=== PATIENT | female | born 1940 | race Caucasian/White ===

== ENCOUNTER 2017-09-13 06:20 | Day surgery (SDC) ==
[2016-08-13 18:31] VITALS: BMI 23.5
[2017-09-13] MEDS ORDERED: VOLTAREN 0.1% OPTH SOL OP PRN (06:46)
[2017-09-13] MEDS ORDERED: KETOROLAC 0.5% OPTH SOL OP PRN (06:46)
[2017-09-13] MEDS ORDERED: LIDOCAINE 1% 20 ML MDV ID STA (06:46)
[2017-09-13] MEDS: CYCLOGYL 2% OPTH OP PRN ×3 (07:10→07:20)
[2017-09-13] MEDS: TETRACAINE 0.5% UNIT-DOSE OP PRN ×3 (07:10→07:40)
[2017-09-13] MEDS: AK-DILATE 10% OPTH SOL OP PRN ×3 (07:10→07:20)
[2017-09-13] MEDS: OCUFEN 0.03% OPTH SOL OP PRN ×3 (07:10→07:40)
[2017-09-13] MEDS ORDERED: VERSED ONE (07:30)
[2017-09-13] MEDS ORDERED: DIAMOX PO ONE ×2 (08:45)
--- NOTE | 2017-09-13 12:56 | OP ---
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 POSTOPERATIVE DIAGNOSIS: SAME. OPERATION PHACOEMULSIFICATION ASPIRATION OF CATARACT LEFT EYE. PLACEMENT OF POSTERIOR CHAMBER LENS. PHACO TIME 0:42.5 SECONDS AT 8% POWER. LENS MODEL BHUMIKA [id number]. DIOPTER +22.5D. TECHNIQUE: CLEAR CORNEA. ANESTHESIA: TOPICAL ANESTHESIA W/ANESTHESIA MONITORING. OPERATIVE REPORT: Topical anesthesia consisting of Tetracaine was applied to the cornea and Xylocaine Methyl Paraben free of MFP was injected intracamerally into the anterior chamber. The patient was then brought into the operating room , prepped and draped in the usual ophthalmic manner. A lid speculum was placed and the operating microscope was used. A paracentesis was made at the 3 o' clock position. A clear corneal incision was made just out to the limbus. The anterior chamber was entered just inside the clear cornea. Viscoelastic was injected into the anterior chamber. A capsulotomy was performed with a bent # 27 gauge needle. Phacoemulsification was then performed in the posterior chamber. After completion of the phacoemulsification, residual cortical material was aspirated with the irrigation-aspiration system. The posterior capsule was polished. Viscoelastic was injected into the anterior and posterior chambers to inflate the capsular bag. Lens were placed via an Unfolder system and stabilized in the bag. Viscoelastic was removed from the anterior chamber. The wound was checked for any leakage. The four sponges were removed from the fornix. Topical antibiotic steroid and nonsteroidal drops were also applied to the cornea. A Jacobsen shield was applied. The patient left the operating room in good condition without any complications. INTRAOPERATIVE MEDICATIONS: Xylocaine Methyl Paraben Free MPF MTDD
[2017-09-13] MEDS ORDERED: DIAMOX PO STA (13:09)
[2017-09-13 13:53] VITALS: BP 138/67; TEMP 98.5
== END 2017-09-13 08:30 | disposition home or self-care (01) ==
LOC: SURG 06:20
PROVIDERS: ATTEND Ophthalmology
DX: H25.12 Age-related nuclear cataract, left eye (principal); H25.012 Cortical age-related cataract, left eye

== ENCOUNTER 2018-01-13 08:25 | Outpatient (CLI) ==
[2018-01-13 09:41] VITALS: BMI 25.7
== END 2018-01-13 08:26 | disposition home or self-care (01) ==
LOC: DIETCN 08:25
PROVIDERS: ATTEND Family Medicine
DX: R73.01 Impaired fasting glucose (principal)

== ENCOUNTER 2018-02-17 21:08 | Emergency (ER) | payer OTHER ==
[2018-02-17 21:25] VITALS: TEMP 98.4; BMI 25.0
--- NOTE | 2018-02-17 22:37 | ED.PDOC ---
General ED Provider: Dr. JACQUELINE ENAMORADO-ER Chief Complaint: Non-specific Complaint Stated Complaint: shes been confused for severall days --about 3 days Time Seen by Physician: 21:15 Mode of Arrival: Walk-In Information Source: Patient, Family Exam Limitations: No limitations Primary Care Provider: COTY LARSEN Nursing and Triage Documentation Reviewed and Agree: Yes Reviewed sepsis parameters & appropriate labs ordered?: Yes System Inflammatory Response Syndrome: Not Applicable Sepsis Protocol: For patient's 13 years and over: Temp is 96.8 and below OR 101 and greater Pulse >90 BPM Resp >20/minute Acutely Altered Mental Status Are patient's symptoms suggestive of a new infection, such as: -Pneumonia -Skin, Soft Tissue -Endocarditis -UTI -Bone, Joint Infection -Implantable Device -Acute Abdominal Infection -Wound Infection -Meningitis -Blood Stream Catheter Infection -Unknown Neurological Complaint Exam - Altered Mental Status Complaint/Exam Current Mental Status: Confusion Onset: Sudden Duration: 3 days Symptoms Are: Still present Episodes Lasting: Days Initial Severity: Mild Current Severity: Moderate Eye Deviation Present: No Character: Reports: Confusion. Denies: Agitation, Responsiveness, Lethargy Alleviating: Reports: None Associated Signs and Symptoms: Denies: Dizziness, Weakness, Headache, Fever, Illness, Nuchal rigidity, Seizure, Nausea, Vomiting, Recently depressed, Trauma Carotid Bruit Present: No Nystagmus Present: No Gag Reflex Present: Yes Meningeal Signs Positive: No Focal Weakness: Present: None Focal Sensory Loss: Present: None Gait: Normal [id number]: Normal Findings Babinski Sign: Positive Right Signs of Injury: Present: Normal findings Thrombolytics Considered: No Differential Diagnoses: Intracranial Bleed, Metabolic Disorder, CVA Review of Systems - Review Of Systems Constitutional: Reports: No symptoms Eyes: Reports: No symptoms Ears, Nose, Mouth, Throat: Reports: No symptoms Respiratory: Reports: No symptoms Cardiac: Reports: No symptoms GI: Reports: No symptoms : Reports: No symptoms Musculoskeletal: Reports: No symptoms Skin: Reports: No symptoms Neurological: Reports: Cognitive dysfunction Endocrine: Reports: No symptoms Hematologic/Lymphatic: Reports: No symptoms All Other Systems: Reviewed and Negative Past Medical History - Past Medical History Previously Healthy: No Endocrine: Reports: None Cardiovascular: Reports: Hypertension Respiratory: Reports: Other (pulmonary nodule) Hematological: Reports: None Gastrointestinal: Reports: None Genitourinary: Reports: None Neuro/Psych: Reports: None Musculoskeletal: Reports: Unknown Cancer: Reports: None Last Menstrual Period: menopausal - Surgical History General Surgical History: Reports: None - Family History Family History: Reports: None - Social History Smoking Status: Former smoker Hx Substance Use: No Alcohol Screening: None Lives: With family - Immunizations Tetanus Shot up to Date: Yes Physical Exam - Physical Exam Appearance: Well-appearing Eyes: LOREN, EOMI, Conjunctiva clear ENT: Ears normal, Nose normal, Oropharynx normal Neck: Supple Respiratory: Airway patent, Breath sounds clear, Breath sounds equal, Respirations nonlabored Cardiovascular: RRR, Pulses normal, No rub, No murmur GI/: Soft, Nontender, No masses, Bowel sounds normal, No Organomegaly Musculoskeletal: Normal strength, ROM intact, No edema, No calf tenderness Skin: Warm, Dry, Normal color Neurological: Disoriented Psychiatric: Affect appropriate, Mood appropriate Interpretation - Radiology Interpretation Radiology Interpretation By: Radiologist Radiology Results: Positive Exam Interpreted: CT Scan - EKG Interpretation Time of EKG #1: 23:01 Rate: Normal Rhythm: Sinus Ectopy: None [place]: NL ST Segment: Normal Physician Notification - Case Discussed Physician Notified: dr larsen Time of Notification: 23:01 Critical Care Note - Critical Care Note Total Time (mins): 15 Course - Course Hematology/Chemistry: 02/17/18 21:48 02/17/18 21:48 Orders, Labs, Meds: Lab Review 02/17/18 02/17/18 02/17/18 21:31 21:48 21:48 WBC 9.32 RBC 3.98 L Hgb 12.2 Hct 36.3 L MCV 91.2 MCH 30.7 MCHC 33.6 RDW Coeff of Lyly 13.2 Plt Count 281 Immature Gran % (Auto) 0.2 Neut % (Auto) 54.2 Lymph % (Auto) 36.5 Towner % (Auto) 7.1 Eos % (Auto) 1.2 Baso % (Auto) 0.8 Immature Gran # (Auto) 0.0 Neut # (Auto) 5.1 Lymph # (Auto) 3.4 Towner # (Auto) 0.7 Eos # (Auto) 0.1 Baso # (Auto) 0.1 ESR 14 Sodium 140 Potassium 4.1 Chloride 108 H Carbon Dioxide 23 Anion Gap 13.1 BUN 12 Creatinine 1.00 Estimated GFR (MDRD) 54.00 BUN/Creatinine Ratio 12.00 Glucose 111 Calcium 9.3 Total Bilirubin 0.3 AST 18 ALT 10 L Alkaline Phosphatase 89 Ammonia Total Protein 6.9 Albumin 3.7 Globulin 3.2 Albumin/Globulin Ratio 1.16 Vitamin B12 Urine Color Yellow Urine Clarity Clear Urine pH 6.5 Ur Specific [place] 1.015 Urine Protein Negative Urine Glucose (UA) Negative Urine Ketones Negative Urine Blood Negative Urine Nitrite Negative Urine Bilirubin Negative Urine Urobilinogen 1.0 Ur Leukocyte Esterase 1+ Urine Microscopic RBC 0-2 Urine Microscopic WBC 2-5 Ur Squamous Epith Cells 2-5 Ur Transition Epith Cell 2-5 Urine Bacteria Trace 02/17/18 02/17/18 21:48 21:48 WBC RBC Hgb Hct MCV MCH MCHC RDW Coeff of Lyly Plt Count Immature Gran % (Auto) Neut % (Auto) Lymph % (Auto) Towner % (Auto) Eos % (Auto) Baso % (Auto) Immature Gran # (Auto) Neut # (Auto) Lymph # (Auto) Towner # (Auto) Eos # (Auto) Baso # (Auto) ESR Sodium Potassium Chloride Carbon Dioxide Anion Gap BUN Creatinine Estimated GFR (MDRD) BUN/Creatinine Ratio Glucose Calcium Total Bilirubin AST ALT Alkaline Phosphatase Ammonia 30 Total Protein Albumin Globulin Albumin/Globulin Ratio Vitamin B12 202 L Urine Color Urine Clarity Urine pH Ur Specific [place] Urine Protein Urine Glucose (UA) Urine Ketones Urine Blood Urine Nitrite Urine Bilirubin Urine Urobilinogen Ur Leukocyte Esterase Urine Microscopic RBC Urine Microscopic WBC Ur Squamous Epith Cells Ur Transition Epith Cell Urine Bacteria Orders Category Date Time Status EKG-(ED ONLY) Stat CARDIO 02/17/18 21:29 Completed Transaction Advisory Services Manager [ED BIOFUELS PLANT MANAGER APPLIED] .ONCE EMERGENCY 02/17/18 21:30 Active AMMONIA Stat LAB 02/17/18 21:48 Completed BLOOD CULTURE (ED ONLY) Stat LAB 02/17/18 21:48 Received CBC W/ AUTO DIFF Stat LAB 02/17/18 21:48 Completed COMPREHENSIVE METABOLIC PANEL Stat LAB 02/17/18 21:48 Completed ESR Stat LAB 02/17/18 21:48 Completed RPR [RAPID PLASMA REAGIN] Stat LAB 02/17/18 21:48 Received URINALYSIS C & S IF INDICATED Stat LAB 02/17/18 21:31 Completed VITAMIN B12 Stat LAB 02/17/18 21:[address] HEAD W/O CONTRAST Stat RADS 02/17/18 21:29 Completed Vital Signs: Temp Pulse Resp BP Pulse Ox 02/17/18 22:49 86 22 155/68 H 96 02/17/18 22:37 83 20 162/74 H 95 02/17/18 21:12 98.4 F 87 20 170/68 H 96 Departure - Departure Time of Disposition: 23:01 Disposition: TSF SHORT-TRM HOSP Discharge Problem: Vitamin B12 deficiency CVA (cerebral vascular accident) Qualifiers: CVA mechanism: unspecified Qualified Code(s): I63.9 - Cerebral infarction, unspecified Condition: Fair Pt referred to PMD for follow-up: Yes IPMP verified?: No Allergies/Adverse Reactions: Allergies naproxen sodium [From Aleve] Allergy (Intermediate, Verified 02/17/18 21:25) Anaphylaxis Home Medications: Ambulatory Orders Calcium Carbonate/Vitamin D3 [Calcium 600 + Vit D 400 Softgl] 1 tab PO DAILY Amlodipine Besylate [Norvasc] 5 mg PO DAILY 08/23/15 Lisinopril [Zestril] 10 mg PO DAILY 08/23/15 Transfer Form Completed: Yes Disposition Discussed With: Patient, Family
[2018-02-17 22:50] VITALS: BP 155/68
--- NOTE | 2018-02-17 22:55 | CT ---
EXAM: CT head without contrast. HISTORY: Confusion. PROCEDURE: Contiguous axial CT images of the head without contrast with coronal and sagittal reforma ts. FINDINGS: Comparison made with CT head of 08/23/2015. There is a focal area of decreased attenuation in the left basal ganglia measuring 3.4 x 1.9 cm suspicious for a subacute infarct. There is parti al effacement of the left frontal horn. The ventricles are within normal limits in size. The basal cisterns are normal in size and configuration. No evidence of mass or midline shift. No intracrania l hemorrhage. No extra-axial fluid collection. There are chronic small vessel ischemic changes in t he white matter. There is diffuse cerebral atrophy. The paranasal sinuses and mastoid air cells are w ell-aerated and normal in appearance. Impression: Focal area of decreased attenuation in the left basal ganglia measuring 3.4 x 1.9 cm, latosha picious for a subacute infarct. Consider MRI for further evaluation if clinically indicated. Chronic small vessel ischemic changes. Diffuse cerebral atrophy.
== END 2018-02-18 01:05 | disposition short-term general hospital (02) ==
LOC: ED 21:08
DX: I63.9 Cerebral infarction, unspecified (principal); E53.8 Deficiency of other specified B group vitamins; I10 Essential (primary) hypertension; R41.3 Other amnesia; Z79.899 Other long term (current) drug therapy
CPT/HCPCS: 36415; 80053; 81001; 82140; 82607; 85025; 85651; 86592; 87040; 93005; 93010; 99285

== ENCOUNTER 2018-03-18 09:00 | Outpatient (RCR) ==
--- NOTE | 2018-03-16 11:23 | RS.SP/LANG ---
Subjective Number of treatment sessions: 1 Date of Evaluation: 03/16/18 Date of Onset/Injury/Change in Status: 02/15/18 Treatment Diagnosis: CVA Current Level of Function: This 77 year old female lives in her home with assistance from her . She is independent with her daily routine, but requires assistance with medication and sales agent financial report service. Her challenges include expressive language, including naming, word finding, and writing skills. Her communication skills are functional independently, but when she becomes fatigued, her expressive langauge becomes more difficult to communicate her wants/needs. Current Subjective/complaints:: The patient reported her primary concerns are talking. When asked about her difficulty, she stated she cannot say the word she is thinking, or she replaces the correct word with a different word. However she went on to state, she does not hear her mistakes in her expressive language. When the RIVET HAMMER MACHINE OPERATOR asked her about her speech difficulty, he stated she requries time to think of the word she wants to use. He stated, " I can usually figure out the word she is wanting to use or say." Both the patient and her feel her speech difficulty inteferes with her communication skills, especially as she becomes tired. Medical History Comments:: CVA, HTN, hx of tobacco use. Hx Home Medications: Refer to list for current medications. Patient's Goals: To be evaluated and determine strengths and challenges with expressive language skills. Both the patient and want to be trained in strategies to use in the home environment to improve expressive langauge skills. Information History:: The was the primary case history provider. He stated that she was at home in the house when the CVA occured. He was outside and she stated "I don't feel right, i'm not sick, I just don't feel right." He took her to the hospital where she was taken for a CT scan. The results indicated a left side CVA. She was admitted to the hospital for two days to be monitored and administered stroke protocols. She was discharged to her home. She went to see her PCP and at the time of her visit, she reported speech difficulty. The PCP referred her for outpatient speech therapy. She had been participating her daily routines and social events with mild-moderate difficulty with her expressive language skills. Informal Assessment:: The RIVET HAMMER MACHINE OPERATOR interviewed the patient prior to the formal assessment. During the interview she relied on her frequently to answer questions. She responded when the question was directed to her and the RIVET HAMMER MACHINE OPERATOR requested she reply. However, she was noted with mild-moderate semantic paraphasias and mild anomia. She had approximately 1-5 seconds response latency periods. She was noted to use filler words and circumlocution occasionally to compensate for her expressive deficts. Formal/Objective Assessment:: SLUMS Problem solving task with moderate difficulty independently and mild difficulty when given verbal and visual cues. Memory recall with 60% accuracy independently increasing to 80% with verbal cues. Divergent naming with mild difficulty. Pt did demonstrate categorical thinking with naming task, but became fatigued in less than one minute and stopped naming animals before the time limit was complete. Visiospatial skills were noted with mild difficulty. The [place] Naming Test was completed from the [place] Diagnostic Aphasia Assessment. She named 50% of objects spontaneously. Named 25% with a response latency. Named 25% given a phonemic cue. Named 15% given a stimulus with a category. Pt had perseveration one time. Pt had phonemic paraphasia's three times. Analysis:: When given a phonemic cue, pt can recall word approximately 50% of the trials. When given a semantic cue, pt can recall word approximately 25-50% of the opportunities. When pt is under timed pressure, naming skills decrease. When pt is recalling words in connected speech, circumlocution behaviors are observed 50%. Pt verbalizes awareness of expressive language deficits. When speech errors occur, she requires verbal cues to identify speech error, and phonemic or semantic cues to correct errors. Pt can correct words independently 50% of opportunities. Summary and Recommendations:: The RIVET HAMMER MACHINE OPERATOR recommends the pt to come for one treatment session. The RIVET HAMMER MACHINE OPERATOR will provided trainining, education, and resource materials for the patient and . The resources will be used to complete a daily home program to practice with naming skills. The RIVET HAMMER MACHINE OPERATOR will provide more treatment sessions if the patient requests for more formal training. However the RIVET HAMMER MACHINE OPERATOR feels the patient and can complete activities in the home environment once the resources are provided. Functional Reporting G Codes: Expressive language Current CK Goal CJ Severity Impairment Rationale: Naming skills are affected in connected speech and in isolated words. Short Term Goals Problem: expressive language Goal #1: Demonstrates comp. strategies with naming skills on 05/13 Problem: expressive language Goal #2: Verbalize awareness of speech errors in connected speech Weight Reduction Specialist Goals Problem: Expressive language Goal #1: Demonstrate strategies independently for home program Plan Duration of Treatment: One Time Treatment Frequency of Treatment: 1x Anticipated Discharge Destination: Home Comments: The pt will participate in one treatment session. The RIVET HAMMER MACHINE OPERATOR will provide formal training and education to the patient and for a home program. Printed papers, materials, and resources will be provided. If the patient requires further training, another treatment session will be provided. - Treatment Code (1) Anomia Code(s): R48.8 - OTHER SYMBOLIC DYSFUNCTIONS
--- NOTE | 2018-03-18 10:20 | RS.SLTREAT ---
Speech/Language Treatment Note Date of Note: 03/18/18 Visit #: 2 Time of Treatment: 09:00 Subjective: Pt and participated in treatment session. Pt reported she "felt better about her speech situation" since she had her evaluation. The PAGEANT DIRECTOR provided supportive and positive education and counseling to both the patient and . Total treatment time: 45 - Short Term Goals Goal #1: Demonstrates comp. strategies with naming skills on 05/13 Activity/Accuracy: PAGEANT DIRECTOR provided printed papers with listed instructions on how strategies. The pt verbalized strategies with minimal difficulty. Goal #2: Verbalize awareness of speech errors in connected speech Activity/Accuracy: The PAGEANT DIRECTOR presented confrontational naming task. the pt demonstrated errors with semantic paraphasias and verbalized error given a minimal cue. - Correction Goals Goal #1: Demonstrate strategies independently for home program Assessment: The PAGEANT DIRECTOR provided printed documents with a home program for 35 days. Each task was reviewed and educated to the pt and . The pt and demonstrated independent skills to complete the tasks in the home environment. - Units Charged Speech Therapy: 3 Swallowing Therapy: 0 - Plan Frequency of Treatment: One time treatment Duration of Treatment: One Time Treatment Comments: The PAGEANT DIRECTOR provided the pt and with resources to utilize for success with their home program. The PAGEANT DIRECTOR also discussed ways to communicate with the PAGEANT DIRECTOR if needed during the home program. Lastly, the PAGEANT DIRECTOR verbalized if any diffculty was observed with the program to follow-up for outpatient speech therapy.
--- NOTE | 2018-03-18 10:26 | RS.S/LDC ---
Subjective Date of Discharge: 03/18/18 Date of Evaluation: 03/16/18 Duration of Therapy: 1x treatment Number of sessions: 1 Functional Reporting G Codes: Expressive language Goal CJ Discharge CK Severity Impairment Rationale: Speech errors with naming and word finding in connected speech. Short Term Goals Goal #1: Demonstrates comp. strategies with naming skills on 05/13 Goal to be met by: 03/18/18 Progress towards Goal: Partially Met Comments:: Pt will continue this goal in the home environment Goal #2: Verbalize awareness of speech errors in connected speech Goal to be met by: 03/18/18 Progress towards Goal: Partially Met Comments:: Pt will continue this goal in the home environment Compressor Operator Goals Goal #1: Demonstrate strategies independently for home program Goal to be met by: 03/18/18 Progress towards Goal: Met Reason for Discharge Reason for Discharge/Current Status:: The patient was at a functional level with her communication skills. However in connected speech and when she became fatigued, she was still noticing mild difficulty with expressive language skills , specifically with naming or word finding. The HOTEL FRONT DESK CLERK and pt both discussed the treatment protocol for treating anomia. Both togehter decided 1x treatment with a home program would benefit the pt. The pt demonstrated skills to participate and complete a daily home program for speechtherapy training with the assistance from her . The HOTEL FRONT DESK CLERK trained the in cueing techniques.
== END 2018-04-02 23:59 ==
PROVIDERS: ATTEND Family Medicine
DX: R48.8 Other symbolic dysfunctions (principal); I63.9 Cerebral infarction, unspecified; I69.30 Unspecified sequelae of cerebral infarction